=== PATIENT | female | born 1940 | race Caucasian/White ===

== ENCOUNTER 2017-07-08 11:57 | Day surgery (SDC) | payer MEDICARE, BC ==
[~2017-07-08] VITALS: Ht 162.6 cm; Wt 69.3 kg
[~2017-07-08 11:57] MED LIST: ALLEGRA180 MG PO; AUGMENTIN 500 M1 TAB PO; CENTRUM SILVER1 TA1 PO; EPA-CON500 MG PO; ESTER-C 5001 TAB PO; FERROUS SU325 MG/TAB PO; FLONASE NASAL S16 GM NS; FOLIC ACID PO; PEPCID 20MG TAB20 MG PO; RITE AID CALCI600 MG PO; TYLENOL 500MG500 MG PO; ULTRAM100 MG PO; VITAMIN C250250 MG PO; VITAMIN E1000 U/CAP PO
[2017-07-08 12:16] VITALS: BP 132/88; PULSE 92; TEMP 98.3
[2017-07-08] MEDS ORDERED: LEXAPRO 10MG10 MG PO (12:19)
[2017-07-08] MEDS ORDERED: ATIVAN 0.50.5 MG/TAB PO (12:20)
[2017-07-08] MEDS ORDERED: ZANTAC 150MG T150 MG PO (12:21)
[2017-07-08] MEDS ORDERED: ALLEGRA 180MG180 MG PO (12:21)
[2017-07-08] MEDS ORDERED: FLONASE NASAL S16 GM NS (12:21)
[2017-07-08] MEDS ORDERED: VITAMIN C500 MG PO (12:22)
[2017-07-08] MEDS ORDERED: CALCIUM 600-D 61 TAB PO (12:22)
[2017-07-08] MEDS ORDERED: CULTURELLE CAP1 EAC1 PO (12:22)
[2017-07-08] MEDS ORDERED: CENTRUM SILVER1 TAB PO (12:23)
[2017-07-08 14:35] VITALS: BP 117/85; PULSE 91; TEMP 98.4
[2017-07-08 14:45] VITALS: BP 95/81; PULSE 98
[2017-07-08 15:00] VITALS: BP 111/82; PULSE 93
[2017-07-08 15:15] VITALS: BP 107/66; PULSE 92
== END 2017-07-08 15:35 | disposition home or self-care (01) ==
LOC: SDCO 11:57
DX: Z12.11 Encounter for screening for malignant neoplasm of colon (principal); K57.30 Diverticulosis of large intestine without perforation or abscess without bleeding; K64.0 First degree hemorrhoids; K58.9 Irritable bowel syndrome, unspecified; K21.9 Gastro-esophageal reflux disease without esophagitis
CPT/HCPCS: J2250; J3010; J7030

== ENCOUNTER → 2017-07-15 | Outpatient (CLI) | payer MEDICARE, BC ==
[~2017-07-15] MED LIST changes: +ALLEGRA 180MG180 MG PO; +ATIVAN 0.50.5 MG/TAB PO; +CALCIUM 600-D 61 TAB PO; +CENTRUM SILVER1 TAB PO; +CULTURELLE CAP1 EAC1 PO; +LEXAPRO 10MG10 MG PO; +VITAMIN C500 MG PO; +ZANTAC 150MG T150 MG PO
== END ==
LOC: MC.RAD 14:24
DX: Z12.31 Encounter for screening mammogram for malignant neoplasm of breast (principal)

== ENCOUNTER → 2018-07-27 | Outpatient (CLI) | payer MEDICARE, BC | LOC: MC.RAD 13:58 | DX: Z12.31 Encounter for screening mammogram for malignant neoplasm of breast (principal) ==

== ENCOUNTER 2020-05-17 13:28 | Emergency (ER) | payer MEDICARE, BC ==
[~2020-05-17] VITALS: Ht 162.6 cm; Wt 69.5 kg
[2020-05-17] MEDS ORDERED: ZOLOFT 25MG25 MG PO (13:58)
[2020-05-17 14:19] LABS: ALBUMIN 4.6 gm/dL (3.5-5.0); BILIRUBIN,TOTAL 0.3 mg/dL (0.0-1.0); CALCIUM 9.3 mg/dL (8.4-10.2); CREATININE, serum 0.61 (0.52-1.25); POTASSIUM 3.8 mmol/L (3.4-5.0); TOTAL PROTEIN 8.8 gm/dL (6.4-8.2)
[2020-05-17 14:31] LABS: BASO # 0.1 (0.0-0.2); BASO % 1.1 % (0.0-2.0); EOS # 0.2 (0.0-0.7); EOS % 2.7 % (0-4.0); GRAN # 3.3 (1.4-6.5); GRAN % 46.3 % (42.2-75.2); HEMATOCRIT 42.7 % (37.0-47.0); HEMOGLOBIN 14.5 g/dl (12.5-16.0); LYMPH # 3.1 (1.2-3.4); LYMPH % 43.7 % (20.0-51.0); MEAN CELL VOLUME 95 fl (80.0-100.0); MEAN CORPUSCULAR HEMOGLOBIN 32 pg (27.0-31.0); MEAN CORPUSCULAR HGB CONC 34 g/dl (33.0-37.0); MEAN PLATELET VOLUME 10.6 fl (7.4-10.4); MONO # 0.4 (0.1-0.6); MONO % 5.9 % (1.7-9.3); PLATELET COUNT 275 K/mm3 (130-400); RED BLOOD COUNT 4.52 M/mm3 (4.10-5.30); REDCELL DISTRIBUTION WIDTH-CV 14.4 % (11.5-14.5)
[2020-05-17 14:40] LABS: INR 1.1 (0.8-3.0); PROTHROMBIN TIME 11.8 SECONDS (9.7-12.8)
[2020-05-17 14:42] LABS: PARTIAL THROMBOPLASTIN TIME 31.2 SECONDS (26.0-37.0)
[2020-05-17] MEDS ORDERED: TOPROL XL 25MG25 MG PO ×2 (15:01→15:26)
[2020-05-17 15:05] VITALS: BP 121/77; PULSE 97
== END 2020-05-17 18:02 | disposition home or self-care (01) ==
LOC: COL.ER 13:28
PROVIDERS: Family Medicine
DX: I47.1 Supraventricular tachycardia (principal); K21.9 Gastro-esophageal reflux disease without esophagitis; Z88.0 Allergy status to penicillin; Z88.2 Allergy status to sulfonamides

== ENCOUNTER 2021-05-19 19:03 | Inpatient (IN) | payer MEDICARE, BC ==
[~2021-05-19] VITALS: Ht 160 cm; Wt 73.1 kg
[2021-05-19] VITALS (123 sets, daily range): BP systolic 109–111; BP diastolic 64–72; PULSE 75–82; TEMP 98.3–98.9; O2SAT 89–95
[~2021-05-19 19:03] MED LIST changes: +TOPROL XL 25MG25 MG PO; +ZOLOFT 25MG25 MG PO
[2021-05-19 19:54] LABS: BASO % 0.2 % (0.0-2.0); EOS % 0.1 % (0.0-4.0); GRAN # 9.7 K/mm3 (1.4-6.5); GRAN % 87.3 % (42.2-75.2); HEMATOCRIT 43.8 % (37.0-47.0); HEMOGLOBIN 15.7 g/dl (12.5-16.0); LYMPH # 0.8 K/mm3 (1.2-3.4); MEAN CELL VOLUME 91 fl (80.0-100.0); MEAN CORPUSCULAR HEMOGLOBIN 32 pg (27-31); MEAN CORPUSCULAR HGB CONC 36 g/dl (33.0-37.0); MONO # 0.6 K/mm3 (0.1-0.6); PLATELET COUNT 333 K/mm3 (130-400); RED BLOOD COUNT 4.84 M/mm3 (4.10-5.30); REDCELL DISTRIBUTION WIDTH-CV 14.3 % (11.5-14.5)
[2021-05-19 20:03] LABS: INR 1.2 (0.8-3.0); PROTHROMBIN TIME 13.4 SECONDS (9.7-12.8)
[2021-05-19 20:08] LABS: ALBUMIN 4.1 gm/dL (3.4-4.8); BILIRUBIN,TOTAL 0.6 mg/dL (0.2-1.2); C-REACTIVE PROTEIN 2.51 mg/dL (0.00-0.50); CALCIUM 9.3 mg/dL (8.4-10.2); CREATININE, serum 0.86 mg/dL (0.57-1.11); POTASSIUM 4.9 mmol/L (3.5-4.5); TOTAL PROTEIN 8.9 gm/dL (6.2-8.1)
[2021-05-19 20:16] LABS: TROPONIN-I 0.17 ng/mL (0.00-0.033)
[2021-05-19] MEDS ORDERED: ZOLOFT 100MG100 MG PO (22:07)
[2021-05-19] MEDS ORDERED: PEPCID 20MG TAB20 MG PO (22:07)
[2021-05-19] MEDS ORDERED: MASON NATURAL1200 MG PO (22:08)
[2021-05-19] MEDS ORDERED: STRESS FORMULA1 T16 PO (22:09)
--- NOTE | 2021-05-19 22:36 | NUR ---
Arrived to ICU 2. Daughter at bedside. Patient alert and orientated. Converted to sinus 80s. All questions answered.
[2021-05-19 23:58] LABS: MAGNESIUM 1.7 mg/dL (1.6-2.6); PHOSPHOROUS 3.4 mg/dL (2.3-4.7)
[2021-05-20] VITALS (1403 sets, daily range): BP systolic 103–127; BP diastolic 58–87; PULSE 72–130; TEMP 98.3–98.8; O2SAT 77–99
[2021-05-20 01:33] LABS: TSH w REFLEX 3.275 uIU/mL (0.350-4.940)
--- NOTE | 2021-05-20 03:37 | NUR ---
Reported acid reflux. Given PRN Maalox
[2021-05-20 05:30] LABS: BASO % 0.2 % (0.0-2.0); EOS % 0.1 % (0.0-4.0); GRAN # 6.5 K/mm3 (1.4-6.5); GRAN % 79.6 % (42.2-75.2); HEMATOCRIT 37.6 % (37.0-47.0); LYMPH % 12.1 % (20.0-51.0); MEAN CORPUSCULAR HGB CONC 34 g/dl (33.0-37.0); MEAN PLATELET VOLUME 10.5 fl (7.4-10.4); MONO # 0.6 K/mm3 (0.1-0.6); MONO % 7.6 % (1.7-9.3); PLATELET COUNT 237 K/mm3 (130-400); RED BLOOD COUNT 3.92 M/mm3 (4.10-5.30); REDCELL DISTRIBUTION WIDTH-CV 14.7 % (11.5-14.5)
[2021-05-20 05:33] LABS: HEMOGLOBIN 12.7 g/dl (12.5-16.0); MEAN CELL VOLUME 96 fl (80.0-100.0); MEAN CORPUSCULAR HEMOGLOBIN 32 pg (27-31)
[2021-05-20 05:36] LABS: PARTIAL THROMBOPLASTIN TIME 62.8 SECONDS (26.0-37.0)
[2021-05-20 05:39] LABS: CALCIUM 8.1 mg/dL (8.4-10.2); CREATININE, serum 0.69 mg/dL (0.57-1.11); POTASSIUM 3.5 mmol/L (3.5-4.5)
[2021-05-20 05:48] LABS: TROPONIN-I 0.192 ng/mL (0.00-0.033)
--- NOTE | 2021-05-20 06:19 | NUR ---
Patient remains in sinus rhythm on cardizem gtt. Up to commode this AM. Denies needs. Call light in reach.
--- NOTE | 2021-05-20 07:23 | NUR ---
Report given to CM Parr
--- NOTE | 2021-05-20 08:00 | NUR ---
Resumed care of PT. All lines, tubes, and GTTs checked and verified. PT is alert and appears to feel better. VSS.
--- NOTE | 2021-05-20 08:03 | NUR ---
Report recieved from brigid PABON. PT needs commode x2 this morning with watery stool incontinent in brief.
[2021-05-20 17:33] LABS: COLLECTION METHOD CLEAN CATCH
[2021-05-20 17:48] LABS: MUCOUS Present (NOT PRESENT); PH 5 (5-8); SQUAMOUS EPITHELIAL None Seen /hpf (0-10); URINE APPEARANCE Clear (CLEAR/HAZY); URINE BACTERIA None Seen /hpf (NONE SEEN); URINE BILIRUBIN Negative (NEGATIVE); URINE BLOOD Negative (NEGATIVE); URINE COLOR Yellow (YELLOW); URINE GLUCOSE Negative (NEGATIVE); URINE KETONE Negative (NEGATIVE); URINE LEUKOCYTE ESTERASE Trace (NEGATIVE); URINE NITRATE Negative (NEGATIVE); URINE PROTEIN(semi-quant) Negative (NEGATIVE); URINE RBC 0-2 /hpf (0-2); URINE UROBILINOGEN Negative (NEGATIVE)
[2021-05-21] VITALS (465 sets, daily range): BP systolic 95–123; BP diastolic 57–77; PULSE 65–83; TEMP 97.7–98.8; O2SAT 87–97
--- NOTE | 2021-05-21 05:54 | NUR ---
ASSUMED CARE OF PATIENT AFTER RECEIVING BEDSIDE REPORT. ASSESSMENT COMPLETED, VSS. PATIENT UP TO CHAIR FOR 2 HOURS. NO COMPLAINTS OF PAIN. NO QUESTIONS OR CONCERNS VOICED. PATIENT HAS BEEN NPO SINCE MIDNIGHT FOR PROCEUDRES. NO ACUTE EVENTS OVERNIGHT. BEDSIDE REPORT TO BE GIVEN TO ONCOMING SHIFT.
[2021-05-21 06:51] LABS: BASO % 0.5 % (0.0-2.0); EOS # 0.2 K/mm3 (0.0-0.7); EOS % 2.3 % (0.0-4.0); GRAN # 4.6 K/mm3 (1.4-6.5); HEMATOCRIT 33.9 % (37.0-47.0); HEMOGLOBIN 11.4 g/dl (12.5-16.0); LYMPH # 1.2 K/mm3 (1.2-3.4); LYMPH % 18.5 % (20.0-51.0); MEAN CELL VOLUME 98 fl (80.0-100.0); MEAN CORPUSCULAR HEMOGLOBIN 33 pg (27-31); MEAN CORPUSCULAR HGB CONC 34 g/dl (33.0-37.0); MEAN PLATELET VOLUME 10.3 fl (7.4-10.4); MONO # 0.6 K/mm3 (0.1-0.6); MONO % 8.5 % (1.7-9.3); PLATELET COUNT 195 K/mm3 (130-400); RED BLOOD COUNT 3.46 M/mm3 (4.10-5.30)
[2021-05-21 07:04] LABS: CALCIUM 7.8 mg/dL (8.4-10.2); CREATININE, serum 0.62 mg/dL (0.57-1.11); MAGNESIUM 2.2 mg/dL (1.6-2.6); POTASSIUM 4.6 mmol/L (3.5-4.5)
--- NOTE | 2021-05-21 10:08 | NUR ---
REPORT GIVEN TO AMISHA PRINCIPAL EMBEDDED SOFTWARE ENGINEER FLOOR. ALL QUESTIONS ANSWERED. PT WILL BE TRANSPORTED VIA WHEELCHAIR WITH ALL BELONGINGS INCLUDING BEDISDE GLASSES,CPAP, PHONE.
--- NOTE | 2021-05-21 10:45 | NUR ---
PATIENT ADMITED INTO ROOM 328 FROM ICU. A&O. VSS. DENIES CHEST PAIN, SOA, N/V OR DIARRHEA. HR IN THE 80'S ON TELE AND IN SR. NPO FOR TEST/PROCEDURES, SEE ORDERS. IV FLUIDS INFUSING VIA PUMP INTO LEFT FORARM IV. HEAD TO TOE ASSESSMENT COMPLETE. PATIENT PLACED ON CONTACT FOR POSITIVE NOROVIRUS. ORIENTED TO ROOM. CALL LIGHT IN REACH. NO OTHER NEEDS AT THIS TIME.
--- NOTE | 2021-05-21 10:46 | NUR ---
PT is in room 328- Nursing staff notified of PT arrival.
--- NOTE | 2021-05-21 10:55 | NUR ---
HOSPITALIST ROUNDING. PATIENT CAN EAT AFTER LOOP RECORDER PLACED TODAY.
--- NOTE | 2021-05-21 13:54 | NUR ---
Market Analysis Director met with patient to discuss discharge planning. 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 Patient lives next door to her daughter, Chaim (ph#[phone]) who is supportive. Patient sees Dr. Dodge for primary care and obtains medications from [facility] with no difficulties. Patient uses a bipap at home and no other DME. Patient is independent with ADLS and plans to return home at time of discharge. Patient reports her daughter, Chaim is her DPOA-HC. Discharge Plan: Home
--- NOTE | 2021-05-21 15:00 | NUR ---
AT BEDSIDE TO PLACE LOOP RECORDER
--- NOTE | 2021-05-22 00:11 | NUR ---
Patient assessed around 0. Alert and oriented, and able to make needs known. Denies pain and discomfort. Peripheral IV to left forearm with IV fluids running per orders. Denies SOB and dyspnea. LS CTA. HRR. Telemetry in place. BSAx4. Dressing to loop recorder site CDI. Voices no questions, needs, or concerns at this time. In bed with call light within reach.
[2021-05-22 04:00] VITALS: BP 131/88; PULSE 87; TEMP 97.6
--- NOTE | 2021-05-22 05:45 | NUR ---
Patient remains in normal sinus rhythm on telemetry. Denies pain and discomfort. Voices no questions, needs, or concerns at this time. In bed with call light within reach.
[2021-05-22 06:46] LABS: CREATININE, serum 0.6 mg/dL (0.57-1.11); POTASSIUM 4.2 mmol/L (3.5-4.5)
[2021-05-22 06:52] LABS: BASO % 0.4 % (0.0-2.0); EOS # 0.2 K/mm3 (0.0-0.7); EOS % 3.3 % (0.0-4.0); GRAN # 3.1 K/mm3 (1.4-6.5); GRAN % 56.6 % (42.2-75.2); HEMOGLOBIN 11.6 g/dl (12.5-16.0); LYMPH # 1.6 K/mm3 (1.2-3.4); LYMPH % 29.3 % (20.0-51.0); MEAN CELL VOLUME 96 fl (80.0-100.0); MEAN CORPUSCULAR HEMOGLOBIN 32 pg (27-31); MEAN CORPUSCULAR HGB CONC 34 g/dl (33.0-37.0); MEAN PLATELET VOLUME 10.4 fl (7.4-10.4); MONO # 0.6 K/mm3 (0.1-0.6); PLATELET COUNT 201 K/mm3 (130-400); RED BLOOD COUNT 3.61 M/mm3 (4.10-5.30); REDCELL DISTRIBUTION WIDTH-CV 14.6 % (11.5-14.5)
[2021-05-22 06:53] LABS: HEMATOCRIT 34.6 % (37.0-47.0)
[2021-05-22 07:31] VITALS: BP 136/64; PULSE 71; TEMP 98
--- NOTE | 2021-05-22 08:00 | NUR ---
PATIENT IS A&O. VSS. HR IN 80'S ON TELE IN SR. NO COMPLAINTS. PATIENT ON SOTOLOL DAY 3 AND HOPING TO DISCHARGE HOME LATER TODAY IF CLEARED BY CARDIOLOGY. LOOP RECORDER CHEST INCISION IS CD&I WITH GAUZE INPLACE. RIGHT AC IV TO INT. NO C/O N/V. BREAKFAST TRAY AT BEDSIDE. AM MEDS GIVEN. HEAD TO TOE ASSESSMENT WNL. NO OTHER NEEDS AT THIS TIME. HOSPITALIST TEAM ROUNDING, SEE NOTES. NO OTHER NEEDS AT THIS TIME. PATIENT INDEPENDENT IN ROOM. CALL LIGHT IN REACH.
--- NOTE | 2021-05-22 09:57 | NUR ---
Isolation patient; Data Storage Specialist left card letting know Data Storage Specialist is available and wishing her God's blessings.
--- NOTE | 2021-05-22 10:20 | NUR ---
Cnc Mechanic met with patient to present and review IM as she may discharge later today. Patient verbalized understanding of her rights as a patient and provided her signature. SW placed form in chart and provided copy to patient.
[2021-05-22 12:19] VITALS: BP 130/68; PULSE 61; TEMP 98.1
[2021-05-22] MEDS ORDERED: MAG-OX 400400 MG/TAB PO (13:47)
[2021-05-22] MEDS ORDERED: BETAPACE 80MG80 MG PO (13:47)
[2021-05-22] MEDS ORDERED: ELIQUIS 5MG PO (13:48)
[2021-05-22] MEDS ORDERED: CLEOCIN HCL300 MG PO (13:50)
--- NOTE | 2021-05-22 15:40 | NUR ---
PATIENT DISCHARGING HOME VIA WC TO PERSONAL VEHICLE WITH DAUGHTER. GAVE DISCHARGE INSTRUCTIONS, E-SCRIPTS SENT, AND DISCUSSED F/U APTS. ANSWERED QUESTIONS/CONCERNS. DC'D TELE. DC'D LEFT WRIST IV AND COVERED SITE WITH GAUZE & COBAN. PATIENT DRESSED, PACKED AND DISCHARGED.
== END 2021-05-22 15:40 | disposition home or self-care (01) | DRG 260 ==
LOC: COL.ER 19:03 → ICU 20:20 → EDBEDREQ 20:26 → COL.ER 20:26 → SURG 05-21 10:10
PROVIDERS: Emergency Medicine; Nurse Practitioner Family; Physician Assistant; ADMIT Internal Medicine
PROC: 0JH632Z Insertion of Monitoring Device into Chest Subcutaneous Tissue and Fascia, Percutaneous Approach (ICD-10-PCS; principal; 2021-05-19)
DX: I48.92 Unspecified atrial flutter (principal); I21.A1 Myocardial infarction type 2; E87.2 Acidosis; A08.11 Acute gastroenteropathy due to Norwalk agent; F41.9 Anxiety disorder, unspecified; I47.1 Supraventricular tachycardia; K21.9 Gastro-esophageal reflux disease without esophagitis; D72.829 Elevated white blood cell count, unspecified; E87.5 Hyperkalemia; R73.9 Hyperglycemia, unspecified; G47.30 Sleep apnea, unspecified; E78.5 Hyperlipidemia, unspecified; E87.6 Hypokalemia; Z96.643 Presence of artificial hip joint, bilateral; Z88.0 Allergy status to penicillin; Z88.2 Allergy status to sulfonamides
CPT/HCPCS: 99223-AI; 99233-AI; 99239; A9500; C1764; J0153; J1644; J2405; J2785; J3475; J7030

== ENCOUNTER 2022-04-18 19:46 | Inpatient (IN) | payer MEDICARE, BC ==
[~2022-04-18] VITALS: Ht 160 cm; Wt 72.0 kg
[~2022-04-18 19:46] MED LIST changes: +BETAPACE 80MG80 MG PO; +CLEOCIN HCL300 MG PO; +ELIQUIS 5MG PO; +MAG-OX 400400 MG/TAB PO; +MASON NATURAL1200 MG PO; +STRESS FORMULA1 T16 PO; +ZOLOFT 100MG100 MG PO
[2022-04-18 20:25] LABS: BASO # 0.1 K/mm3 (0.0-0.2); BASO % 0.4 % (0.0-2.0); EOS # 0.1 K/mm3 (0.0-0.7); EOS % 0.6 % (0.0-4.0); GRAN # 11.6 K/mm3 (1.4-6.5); GRAN % 82.6 % (42.2-75.2); HEMOGLOBIN 15.5 g/dl (12.5-16.0); LYMPH # 1.5 K/mm3 (1.2-3.4); LYMPH % 10.6 % (20.0-51.0); MEAN CELL VOLUME 95 fl (80.0-100.0); MEAN CORPUSCULAR HEMOGLOBIN 34 pg (27-31); MEAN CORPUSCULAR HGB CONC 35 g/dl (33.0-37.0); MEAN PLATELET VOLUME 9.8 fl (7.4-10.4); MONO # 0.8 K/mm3 (0.1-0.6); MONO % 5.4 % (1.7-9.3); PLATELET COUNT 291 K/mm3 (130-400); RED BLOOD COUNT 4.61 M/mm3 (4.10-5.30); REDCELL DISTRIBUTION WIDTH-CV 13.2 % (11.5-14.5)
[2022-04-18 20:57] LABS: ALBUMIN 4.2 gm/dL (3.4-4.8); BILIRUBIN,TOTAL 1.2 mg/dL (0.2-1.2); C-REACTIVE PROTEIN 0.14 mg/dL (0.00-0.50); CALCIUM 10.1 mg/dL (8.4-10.2); CREATININE, serum 0.77 mg/dL (0.57-1.11); POTASSIUM 4.6 mmol/L (3.5-4.5); TOTAL PROTEIN 8.4 gm/dL (6.2-8.1)
[2022-04-18] MEDS ORDERED: B-121000 MCG PO (21:49)
[2022-04-19] VITALS (7 sets, daily range): BP systolic 118–141; BP diastolic 66–86; PULSE 84–98; TEMP 98–99.3
--- NOTE | 2022-04-19 | NUR ---
Patient arrived to room 317 via stretcher. Oriented to room and policy. Admission assessment complete. VS stable. Patient states she is very loopy from the morphine she received in the ED and falls asleep often during assessment. Plan of care discussed for this shift to include clear liquid diet/medications/calling for questions/concerns. Verbalizes understanding. Call light in reach. Will monitor.
[2022-04-19] MEDS ORDERED: MAG OX 250 PO (01:01)
[2022-04-19] MEDS ORDERED: ZOLOFT 25MG25 MG PO (01:04)
[2022-04-19] MEDS ORDERED: CYMBALTA 20MG20 MG PO (05:44)
--- NOTE | 2022-04-19 06:27 | NUR ---
Patient slept most of the time after arriving to the floor. Denied pain/nausea/shortness of breath. VS remained stable. LR@125ml/hr to left forearm 22g. No s/s of distress noted. Will monitor.
[2022-04-19 08:16] LABS: BASO % 0.2 % (0.0-2.0); EOS % 0.1 % (0.0-4.0); GRAN % 82.9 % (42.2-75.2); HEMATOCRIT 42.4 % (37.0-47.0); HEMOGLOBIN 14.5 g/dl (12.5-16.0); LYMPH # 1.5 K/mm3 (1.2-3.4); MEAN CELL VOLUME 99 fl (80.0-100.0); MEAN CORPUSCULAR HEMOGLOBIN 34 pg (27-31); MEAN CORPUSCULAR HGB CONC 34 g/dl (33.0-37.0); MEAN PLATELET VOLUME 9.9 fl (7.4-10.4); MONO # 0.6 K/mm3 (0.1-0.6); MONO % 4.6 % (1.7-9.3); PLATELET COUNT 246 K/mm3 (130-400); REDCELL DISTRIBUTION WIDTH-CV 13.5 % (11.5-14.5)
--- NOTE | 2022-04-19 08:24 | NUR ---
0645 Report received from business process architectneil Montano RN.
--- NOTE | 2022-04-19 08:25 | NUR ---
0705 Head to toe assessment completed (see shift assessment). Patient is alert and oriented x3 and is pleasant with this nurse. Patient ambualted to the restroom with supervision. Voices fatigue and drowsiness. VS WNL. Bowel sounds active. Lung sounds clear. IV shows no s/s of infection or infiltration. Patient voices complaints of pain 6/10 to right upper quadrant, voices no need for PRN pain medication and stated "please no more morphine, I want it out of my system." Patient resting in bed at this time. bed in lowest position, call light in reach. Bed alarm on. Patient reminded of safety risk and importance of calling for nurse when needing restroom. Patient voiced understanding.
[2022-04-19 08:33] LABS: ALBUMIN 3.4 gm/dL (3.4-4.8); BILIRUBIN,TOTAL 1.1 mg/dL (0.2-1.2); CALCIUM 8.9 mg/dL (8.4-10.2); CREATININE, serum 0.61 mg/dL (0.57-1.11); POTASSIUM 4.4 mmol/L (3.5-4.5); TOTAL PROTEIN 6.9 gm/dL (6.2-8.1)
--- NOTE | 2022-04-19 08:41 | NUR ---
Patient stating she would like to take cymbalta in the evening around 1700 instead of this morning. Patient also states she gabrielle take the buspirone, sotalol, and eliquis now but would like to wait to take the rest of her medication until after she drinks her broth to prevent stomach upset.
[2022-04-19 08:49] LABS: BILIRUBIN,DIRECT 0.5 mg/dL (0.0-0.5)
--- NOTE | 2022-04-19 08:55 | NUR ---
PT RESTING IN BED UPON ENTERING ROOM. MORNING MEDICATIONS WILL BE GIVEN BY STUDENT RN SOO. SHIFT ASSESSMENT COMPLETED. PT REPORTS ABDOMINAL PAIN OF 5/10 BUT DENIES PRN MEDICATIONS. THIS RN CALLED DAUGHTER TO GIVE AN UPDATE. PT APPEARS DROWSY AT THIS TIME. CALL LIGHT WITHIN REACH. DENIES ANY ADDITIONAL NEEDS. IVF INFUSING. WILL CONTINUE TO MONITOR.
--- NOTE | 2022-04-19 09:31 | NUR ---
MELANIE met with the patient and her daughter, Zenaida Doss (ph#[phone]), to discuss discharge plan. The patient lives in [place] with her son. She shares that he has a developmental delay and goes to [facility] during the day. She reports independence with ADLs and has a cane available, when needed. She has a bipap to wear at nights. The patient's PCP is Dr. Esther Dodge and she receives her medications from [facility]. The patient does not have a DPOA-HC in EMR, but she states that she does have one completed and that it designates Zenaida. She states that she is and has two children. Her son has a developmental delay. The patient plans to return home upon discharge. No additional needs at this time. *Discharge plan: home*
--- NOTE | 2022-04-19 20:30 | NUR ---
Initial shift assessment done- Up to bathroom with assist- slow but steady on feet, IV fluids of NS at 75cc/hr, states abd pain 04/19, denies need for pain meds now, is slightly nauseated -- will call Marysol GRANGER for anti-nausea med. Is on o2 at 2L/nc at this time- states usually wears a CPAP at night but does not have it here- tele on- NSR
[2022-04-20 03:24] VITALS: BP 119/64; PULSE 84; TEMP 98.8
--- NOTE | 2022-04-20 05:30 | NUR ---
Quiet night- Did receive Phenergan x1 for nausea- did not require any pain meds this shift, IV fluids continue at 75cc/hr.
--- NOTE | 2022-04-20 06:45 | NUR ---
PATIENT AWAKE AND ALERT, RESTING IN BED. BED ALARM ON. CALL LIGHT WITHIN REACH. O2 @ 1L NC. PATIENTS ONLY COMPLAINT AT THIS TIME IS SOME DIZZINESS AFTER RECIEVEING PHENERGAN FOR NAUSEA. OTHER THAN THAT PATIENT DENIES ANY COMPLAINTS OR NEEDS AT THIS TIME.
[2022-04-20 07:01] LABS: BASO % 0.3 % (0.0-2.0); EOS # 0.1 K/mm3 (0.0-0.7); GRAN # 9.3 K/mm3 (1.4-6.5); GRAN % 80.9 % (42.2-75.2); HEMATOCRIT 38.1 % (37.0-47.0); HEMOGLOBIN 12.8 g/dl (12.5-16.0); LYMPH # 1.3 K/mm3 (1.2-3.4); LYMPH % 11.1 % (20.0-51.0); MEAN CELL VOLUME 100 fl (80.0-100.0); MEAN CORPUSCULAR HEMOGLOBIN 33 pg (27-31); MEAN CORPUSCULAR HGB CONC 34 g/dl (33.0-37.0); MEAN PLATELET VOLUME 10.4 fl (7.4-10.4); MONO # 0.7 K/mm3 (0.1-0.6); MONO % 6.3 % (1.7-9.3); PLATELET COUNT 249 K/mm3 (130-400); RED BLOOD COUNT 3.83 M/mm3 (4.10-5.30); REDCELL DISTRIBUTION WIDTH-CV 13.5 % (11.5-14.5)
[2022-04-20 07:08] LABS: CALCIUM 8.5 mg/dL (8.4-10.2); CREATININE, serum 0.62 mg/dL (0.57-1.11); POTASSIUM 3.8 mmol/L (3.5-4.5)
[2022-04-20 07:23] VITALS: BP 135/66; PULSE 86; TEMP 97.9
--- NOTE | 2022-04-20 09:53 | NUR ---
PATIENT STILL TRYING TO FINISH BREAKFAST. HAS DRANK 2/3 OF HER APPLE JUICE, AND ATE ALL OF HER SINHALA ICE. NIKIA IS COMPLAINING OF "SOME PAIN" HOWEVER DOES NOT WISH TO TAKE ANYMORE PAIN MEDICATIONS.
[2022-04-20 12:01] VITALS: BP 141/68; PULSE 87; TEMP 98.2
[2022-04-20 16:28] VITALS: BP 144/77; PULSE 94; TEMP 98.1
--- NOTE | 2022-04-20 20:30 | NUR ---
Initial shift assessment done- states does have some abd pain 04/19- does not want the pain or nausea meds- states the meds make her feel worse- going for surgery in the am, NPO after MN,, Tele on
[2022-04-20 20:41] VITALS: BP 114/73; PULSE 110; TEMP 98.3
[2022-04-20 23:33] VITALS: BP 146/78; PULSE 99; TEMP 97.8
[2022-04-21] VITALS (11 sets, daily range): BP systolic 119–161; BP diastolic 69–85; PULSE 76–95; TEMP 98–99.5
--- NOTE | 2022-04-21 06:19 | NUR ---
Patient care, medication administration and nursing documentation occurred during a Daylight Savings Time Change.
[2022-04-21 06:50] LABS: BASO % 0.4 % (0.0-2.0); EOS # 0.2 K/mm3 (0.0-0.7); EOS % 1.6 % (0.0-4.0); GRAN # 8.5 K/mm3 (1.4-6.5); GRAN % 78.1 % (42.2-75.2); HEMOGLOBIN 12.2 g/dl (12.5-16.0); LYMPH # 1.4 K/mm3 (1.2-3.4); LYMPH % 12.4 % (20.0-51.0); MEAN CELL VOLUME 98 fl (80.0-100.0); MEAN CORPUSCULAR HEMOGLOBIN 33 pg (27-31); MEAN CORPUSCULAR HGB CONC 34 g/dl (33.0-37.0); MEAN PLATELET VOLUME 10.5 fl (7.4-10.4); MONO # 0.8 K/mm3 (0.1-0.6); MONO % 7.2 % (1.7-9.3); PLATELET COUNT 257 K/mm3 (130-400); RED BLOOD COUNT 3.67 M/mm3 (4.10-5.30); REDCELL DISTRIBUTION WIDTH-CV 13.2 % (11.5-14.5)
[2022-04-21 06:52] LABS: HEMATOCRIT 35.9 % (37.0-47.0)
--- NOTE | 2022-04-21 07:31 | NUR ---
Ready for OR- consent signed, IV fluids hung on straight tubing, pre-op checklist done, clean gown on- voided, VSS- OR staff here to take pt to surgery-- Will go to room 346 post op/daughter/pt aware.
[2022-04-21 07:48] LABS: CALCIUM 8.5 mg/dL (8.4-10.2); CREATININE, serum 0.56 mg/dL (0.57-1.11); POTASSIUM 3.5 mmol/L (3.5-4.5)
--- NOTE | 2022-04-21 10:00 | NUR ---
Pt to room 346 via bed, from PACU. Is awake, oriented x 4, reports pain 6/10 to RUQ abdomen. Lap site x 3, CDI. VSS, afebrile.
--- NOTE | 2022-04-21 11:01 | NUR ---
Pt ambulates to BR with 1 assist. Reports pain 0/10. BSx4 present. Lap site x 3 CDI.
[2022-04-22 04:02] VITALS: BP 119/56; PULSE 80; TEMP 98
[2022-04-22 07:04] LABS: CALCIUM 8.4 mg/dL (8.4-10.2); CREATININE, serum 0.6 mg/dL (0.57-1.11); POTASSIUM 3.7 mmol/L (3.5-4.5)
[2022-04-22 07:10] LABS: BASO % 0.2 % (0.0-2.0); GRAN # 11.1 K/mm3 (1.4-6.5); GRAN % 85.4 % (42.2-75.2); HEMOGLOBIN 11.2 g/dl (12.5-16.0); LYMPH % 7.8 % (20.0-51.0); MEAN CELL VOLUME 96 fl (80.0-100.0); MEAN CORPUSCULAR HEMOGLOBIN 33 pg (27-31); MEAN CORPUSCULAR HGB CONC 35 g/dl (33.0-37.0); MEAN PLATELET VOLUME 10.7 fl (7.4-10.4); MONO # 0.8 K/mm3 (0.1-0.6); PLATELET COUNT 289 K/mm3 (130-400); RED BLOOD COUNT 3.37 M/mm3 (4.10-5.30); REDCELL DISTRIBUTION WIDTH-CV 13.2 % (11.5-14.5)
[2022-04-22 07:12] LABS: HEMATOCRIT 32.5 % (37.0-47.0)
[2022-04-22 07:36] VITALS: BP 113/67; PULSE 65; TEMP 98.2
[2022-04-22] MEDS ORDERED: ZOFRAN ODT4 MG PO (08:32)
[2022-04-22] MEDS ORDERED: OMNICEF 300MG300 MG PO (08:36)
[2022-04-22] MEDS ORDERED: FLAGYL500 MG PO (08:37)
--- NOTE | 2022-04-22 08:54 | NUR ---
PT DISCHARGEING LATER THIS AM. PT UP TO SHOWER WITH SET UP ASSIST. PAIN CONTROLLED WITH PO MEDS. PT VOIDING, PASSING GAS.
--- NOTE | 2022-04-22 09:33 | NUR ---
Patient to be discharged home today. Tower Dragline Operator met with patient to present and review IM form. Patient verbalized understanding then provided signature. SW placed form in chart and provided copy to patient. Discharge Plan: Home
--- NOTE | 2022-04-22 12:11 | NUR ---
DISCHARGE INSTRUCTIONS REVIEWED WITH PT. QUESTIONS SOLICITED AND ANSWERED. PT LEFT UNIT PER WHEEL CHAIR WITH STAFF.
== END 2022-04-22 12:00 | disposition home or self-care (01) | DRG 853 ==
LOC: COL.ER 19:46 → MEDICAL 23:33 → SURG 04-21 10:24
PROVIDERS: Emergency Medicine; Surgery; ADMIT Internal Medicine
PROC: 0FT44ZZ Resection of Gallbladder, Percutaneous Endoscopic Approach (ICD-10-PCS; principal; 2022-04-21 08:00)
DX: A41.9 Sepsis, unspecified organism (principal); K85.10 Biliary acute pancreatitis without necrosis or infection; E87.20 Acidosis, unspecified; B17.9 Acute viral hepatitis, unspecified; I47.1 Supraventricular tachycardia; K80.10 Calculus of gallbladder with chronic cholecystitis without obstruction; G47.33 Obstructive sleep apnea (adult) (pediatric); M19.90 Unspecified osteoarthritis, unspecified site; K82.8 Other specified diseases of gallbladder; F32.A Depression, unspecified; F41.9 Anxiety disorder, unspecified; K21.9 Gastro-esophageal reflux disease without esophagitis; I48.91 Unspecified atrial fibrillation; Z96.643 Presence of artificial hip joint, bilateral; Z79.01 Long term (current) use of anticoagulants; Z88.0 Allergy status to penicillin; Z88.2 Allergy status to sulfonamides; Z90.49 Acquired absence of other specified parts of digestive tract; Z23 Encounter for immunization
CPT/HCPCS: J0690; J0696; J1100; J2270; J2370; J2405; J2550; J2704; J2710; J3010; J7030; J7120; Q9967

== ENCOUNTER 2023-11-20 11:48 | Observation (INO) | payer MEDICARE, BC ==
[~2023-11-20] VITALS: Ht 160 cm; Wt 70.0 kg
[~2023-11-20 11:48] MED LIST changes: +B-121000 MCG PO; +CYMBALTA 20MG20 MG PO; +FLAGYL500 MG PO; +MAG OX 250 PO; +OMNICEF 300MG300 MG PO; +ZOFRAN ODT4 MG PO
[2023-11-20 12:15] LABS: BASO # 0.1 K/mm3 (0.0-0.2); EOS # 0.3 K/mm3 (0.0-0.7); EOS % 3.4 % (0.0-4.0); GRAN # 4.8 K/mm3 (1.4-6.5); HEMATOCRIT 43.3 % (37.0-47.0); HEMOGLOBIN 15.1 g/dl (12.5-16.0); LYMPH # 2.8 K/mm3 (1.2-3.4); LYMPH % 31.8 % (20.0-51.0); MEAN CELL VOLUME 95 fl (80.0-100.0); MEAN CORPUSCULAR HEMOGLOBIN 33 pg (27-31); MEAN CORPUSCULAR HGB CONC 35 g/dl (33.0-37.0); MEAN PLATELET VOLUME 10.6 fl (7.4-10.4); MONO # 0.8 K/mm3 (0.1-0.6); MONO % 9.5 % (1.7-9.3); PLATELET COUNT 277 K/mm3 (130-400); RED BLOOD COUNT 4.54 M/mm3 (4.10-5.30); REDCELL DISTRIBUTION WIDTH-CV 14.5 % (11.5-14.5)
[2023-11-20 12:33] LABS: BILIRUBIN,TOTAL 0.5 mg/dL (0.2-1.2); CALCIUM 9.9 mg/dL (8.4-10.2); CREATININE, serum 0.77 mg/dL (0.57-1.11); POTASSIUM 4.4 mEq/L (3.5-4.5); TOTAL PROTEIN 8.2 g/dl (6.2-8.1)
[2023-11-20 12:38] LABS: TROPONIN-I 0.013 ng/mL (0.00-0.033)
[2023-11-20] MEDS ORDERED: Heparin 5,000 UNITS/ML 1 ML VIAL IV PRN (14:45)
[2023-11-20] MEDS ORDERED: Heparin/D5W 250 ML IV SCH (14:45)
[2023-11-20] MEDS ORDERED: Ondansetron 4 MG/2 ML VIAL IV PRN (14:45)
[2023-11-20] MEDS ORDERED: Heparin 5,000 UNITS/ML 1 ML VIAL IV ONE (14:45)
[2023-11-20] MEDS ORDERED: Acetaminophen 500 MG TAB PO PRN (14:45)
[2023-11-20 14:55] LABS: PARTIAL THROMBOPLASTIN TIME 39.6 SECONDS (26.0-37.0)
[2023-11-20] MEDS ORDERED: ZOLOFT 25MG25 MG PO (15:10)
[2023-11-20] MEDS ORDERED: Ketorolac 15 MG/ML VIAL IV ONE (15:15)
[2023-11-20 16:32] VITALS: BP 134/82; PULSE 73; TEMP 97.9
[2023-11-20 17:00] VITALS: BP_SYST 134
[2023-11-20 19:44] VITALS: BP 111/70; PULSE 67; TEMP 98.1
[2023-11-20] MEDS ORDERED: Famotidine 20 MG TAB PO SCH (21:00)
[2023-11-20 21:30] VITALS: BP_SYST 111
--- NOTE | 2023-11-20 22:51 | NUR ---
patient lying in bed, alert and oriented x4. reports feeling intermittent pressure in left chest rated 5/10 and then upon reassessment rated 1/10, pt stated "also feels like pulled muscle". education provided concerning discomfort/pain reducation medications such as nitro, morphine, or tylenol, pt refusing medication interventions at this time. denies shortness of breath. IV in LAC and LF are patent, sites CDI with heparing gtt running in LF IV. per PTT of 118.5 critical level called to [facility] at 2218. heparin decreased 150 units per protocol and now running at 700 units per hour. call light within reach, pt ambulates with cane and x1 assist/sba. pt has no further needs, questions or concerns at this time. per request tylenol given for pain in hip and back rated 6/10.
[2023-11-20 23:06] VITALS: BP 135/80; PULSE 74; TEMP 97.8
[2023-11-20 23:09] VITALS: BP_SYST 135
[2023-11-21 04:17] VITALS: BP 125/69; PULSE 63; TEMP 97.8
[2023-11-21 04:44] LABS: BASO # 0.1 K/mm3 (0.0-0.2); BASO % 0.7 % (0.0-2.0); EOS # 0.3 K/mm3 (0.0-0.7); EOS % 3.9 % (0.0-4.0); GRAN # 3.5 K/mm3 (1.4-6.5); GRAN % 45.6 % (42.2-75.2); LYMPH # 3.1 K/mm3 (1.2-3.4); LYMPH % 41.3 % (20.0-51.0); MEAN CELL VOLUME 95 fl (80.0-100.0); MEAN CORPUSCULAR HEMOGLOBIN 33 pg (27-31); MEAN CORPUSCULAR HGB CONC 35 g/dl (33.0-37.0); MEAN PLATELET VOLUME 11.1 fl (7.4-10.4); MONO # 0.6 K/mm3 (0.1-0.6); PLATELET COUNT 217 K/mm3 (130-400); RED BLOOD COUNT 3.92 M/mm3 (4.10-5.30); REDCELL DISTRIBUTION WIDTH-CV 14.2 % (11.5-14.5)
[2023-11-21 04:54] LABS: HEMATOCRIT 37.1 % (37.0-47.0); HEMOGLOBIN 12.9 g/dl (12.5-16.0)
[2023-11-21 05:03] VITALS: BP_SYST 125
[2023-11-21 06:00] LABS: CHOLESTEROL RISK RATIO 4.1; CREATININE, serum 0.77 mg/dL (0.57-1.11); POTASSIUM 4.3 mEq/L (3.5-4.5)
[2023-11-21 06:06] LABS: TROPONIN-I 0.014 ng/mL (0.00-0.033)
[2023-11-21 07:37] VITALS: BP 129/78; PULSE 63; TEMP 98
[2023-11-21 09:00] VITALS: BP_SYST 129
[2023-11-21] MEDS ORDERED: Fexofenadine 180 MG **** subs to Loratadine 10 MG PO SCH (09:00)
[2023-11-21] MEDS ORDERED: Loratadine 10 MG TAB PO SCH (09:00)
[2023-11-21] MEDS ORDERED: Sertraline 100 MG TAB PO SCH (09:00)
[2023-11-21] MEDS ORDERED: Influenza Virus Vaccine, Hi-Dose Triv '24-25 (65 YR+) 0.5 ML SYRINGE IM SCH (09:00)
[2023-11-21] MEDS ORDERED: Sertraline 25 MG TAB PO SCH (09:00)
--- NOTE | 2023-11-21 09:40 | NUR ---
Initial visit; Patient thanked Java Golden Gate Developer for looking in on her and offering Spiritual Care. Java Golden Gate Developer was pleased to offer God's blessings. It was a pleasure to meet
[2023-11-21] MEDS ORDERED: LIPITOR20 MG PO (10:28)
[2023-11-21] MEDS ORDERED: Apixaban 5 MG TABLET PO SCH (10:30)
--- NOTE | 2023-11-21 10:34 | NUR ---
Frothing Machine Operator met with patient and her daughter, Chaim (ph#[phone]) to discuss discharge planning. Patient lives in [place] with her daughter, Chaim as well has her son, Renato who has a developmental disability. Patient sees Dr. Cruz for primary care and gets medications from [facility] with no difficulties. Patient uses a cane when going out into the community and also has a home CPAP. Patient is independent with ADLS, including driving. Patient reported her daughter, Chaim is her DPOA-HC. Discharge Plan: Home
[2023-11-21 11:26] VITALS: BP 115/71; PULSE 69; TEMP 98.3
[2023-11-21 11:49] VITALS: BP_SYST 115
--- NOTE | 2023-11-21 12:30 | NUR ---
PATIENT DISCHARGE INSTRUCTIONS GIVEN. PATIENT VERBALIZED UNDERSTANDING. PATIENT IV AND TELE DICONTINUED. INSTRUCTED TO CALL WHEN RIDE ARRIVES AND PCT WILL ESCORT PATIENT TO PATIENT ENTRANCE VIA WHEELCHAIR. CALL LIGHT WITHIN REACH. BED AT LOWEST POSITION.
--- NOTE | 2023-11-21 13:08 | NUR ---
PT WHEELED OUT FOR DISCHARGE BY PAINT ROLLER COVERMAKER.
== END 2023-11-21 13:09 | disposition home or self-care (01) ==
LOC: COL.ER 11:48 → MEDICAL 14:39
PROVIDERS: Physician Assistant; ADMIT Internal Medicine
DX: R07.2 Precordial pain (principal); G47.33 Obstructive sleep apnea (adult) (pediatric); I48.91 Unspecified atrial fibrillation; K21.9 Gastro-esophageal reflux disease without esophagitis; F41.9 Anxiety disorder, unspecified; F32.A Depression, unspecified; Z79.01 Long term (current) use of anticoagulants; Z95.818 Presence of other cardiac implants and grafts; Z79.899 Other long term (current) drug therapy; E78.5 Hyperlipidemia, unspecified; R07.9 Chest pain, unspecified
CPT/HCPCS: G0008; G0378; J1644; J1885